=== PATIENT | male | born 2000 | race Caucasian/White ===

== ENCOUNTER 2021-03-03 13:15 | Emergency (ER) | payer OTHER ==
[~2021-03-03] VITALS: Ht 177.8 cm; Wt 74.4 kg
[2021-03-03 14:02] LABS: WBC 10.6 thou/uL (4.0-11.0)
[2021-03-03 14:04] LABS: ABSOLUTE NEUTROPHILS 8.9 thou/uL (1.4-8.2); BASOPHILS 0.6 % (0.0-2.0); EOSINOPHILS 0.1 % (0.0-3.0); HEMATOCRIT 53.3 % (42.0-52.0); HEMOGLOBIN 18.1 gm/dL (14.0-18.0); LYMPHOCYTES 10.5 % (24.0-44.0); MCH 29.8 pg (26.0-34.0); MCV 87.5 fL (80.0-100.0); MONOCYTES 5.2 % (1.0-8.0); PLATELET COUNT 446 thou/uL (150-400); POLYS 83.6 % (36.0-66.0); RBC 6.09 mil/uL (4.50-6.00); RDW 12.9 % (10.5-14.5)
[2021-03-03 14:06] LABS: CALCIUM 9.8 mg/dL (8.5-10.1); CREATININE 1.5 mg/dL (0.7-1.3)
[2021-03-03 15:33] LABS: BE(vivo) -7.4 mmol/L (-2 to +3); HCO3 16.5 mmol/L (22.0-26.0); PCO2 VENOUS 30.1 mmHg (41.0-51.0); PO2 VENOUS 72.9 mmHg (35.0-45.0)
[2021-03-03 16:08] VITALS: BP 123/74
== END 2021-03-03 16:15 | disposition home or self-care (01) ==
LOC: ER 13:15
PROVIDERS: Emergency Medicine
DX: E86.0 Dehydration (principal); F19.239 Other psychoactive substance dependence with withdrawal, unspecified

== ENCOUNTER 2021-03-05 17:00 | Emergency (ER) | payer OTHER ==
[~2021-03-05] VITALS: Ht 177.8 cm; Wt 79.4 kg
[2021-03-05 18:15] LABS: MCH 30.4 pg (26.0-34.0); MCHC 35.5 g/dL (28.0-37.0); MCV 85.5 fL (80.0-100.0); RBC 5.61 mil/uL (4.50-6.00); RDW 12.4 % (10.5-14.5); WBC 6.5 thou/uL (4.0-11.0)
[2021-03-05 18:29] LABS: CALCIUM 10.1 mg/dL (8.5-10.1); CREATININE 1.1 mg/dL (0.7-1.3); POTASSIUM 3.2 mmol/L (3.5-5.1)
[2021-03-05 18:33] LABS: ALBUMIN 4.4 g/dL (3.4-5.0); TOTAL BILIRUBIN 0.9 mg/dL (0.2-1.0); TOTAL PROTEIN 8.1 g/dL (6.4-8.2)
[2021-03-05] MEDS ORDERED: ZOFRAN ODT4 MG PO (20:28)
[2021-03-05] MEDS ORDERED: IBUPROFEN 600600 M1 PO (20:28)
[2021-03-05 20:38] VITALS: BP 139/89
== END 2021-03-05 20:39 | disposition home or self-care (01) ==
LOC: ER 17:00
PROVIDERS: Student in an Organized Health Care Education/Training Program
DX: N20.0 Calculus of kidney (principal); R11.2 Nausea with vomiting, unspecified